=== PATIENT | female | born 1985 | race Caucasian/White ===

== ENCOUNTER 2017-01-04 20:08 | Emergency (ER) | payer OTHER ==
[~2017-01-04] VITALS: Ht 160 cm; Wt 78.5 kg
[2017-01-04 20:11] VITALS: Ht 160 cm; Wt 78.5 kg
[2017-01-04] MEDS ORDERED: FAMO-96 PO (21:06)
[2017-01-04] MEDS ORDERED: PRED20TA PO (21:06)
[2017-01-04] MEDS ORDERED: BEN25 PO (21:06)
--- NOTE | 2017-01-04 21:16 | ERD ---
ER Documentation Chief Complaint Date/Time DATE: 01/04/17 TIME: 21:10 Chief Complaint itchy rash over her belly & thighs today, no SOB HPI 31 year old female comes in with a pruritic rash on her abdomen chest and thighs that started 2 days ago. She states that she has had a similar rash as today in the past from earing "[id number]" but does not recall eating fish or seafood recently. She denies new foods, medication, lotions or creams. She states they got a new cat but she has had cats prior. No shortness of breath. She has tried taking benadryl but it has not made any improvements in her symptoms. ROS All systems reviewed and are negative except as per history of present illness. Medications Home Meds Active Scripts Famotidine* (Pepcid*) 20 Mg Tablet, 20 MG PO BID for 4 Days, TAB Prov:YELENA ALEXANDER PA-C 01/04/17 Diphenhydramine Hcl* (Benadryl*) 25 Mg Cap, 25 MG PO Q6, #30 CAP Prov:YELENA ALEXANDER PA-C 01/04/17 Prednisone* (Prednisone*) 20 Mg Tab, 40 MG PO DAILY for 4 Days, TAB Prov:YELENA ALEXANDER PA-C 01/04/17 Reported Medications [None] No Conflict Check 07/10/10 Allergies Allergies: Coded Allergies: naproxen (Verified Allergy, Unknown, 01/04/17) PMhx/Soc Medical and Surgical Hx: pt denies Medical Hx, pt denies Surgical Hx History of Surgery: Yes () Anesthesia Reaction: No Hx Neurological Disorder: No Hx Respiratory Disorders: No Hx Cardiac Disorders: No Hx Psychiatric Problems: No Hx Miscellaneous Medical Probl: No (no medical hx) Hx Alcohol Use: No Hx Substance Use: No Hx Tobacco Use: No Smoking Status: Current every day smoker Physical Exam Vitals Vital Signs Date Time Temp Pulse Resp B/P Pulse Ox O2 Delivery O2 Flow Rate FiO2 01/04/17 20:11 98.3 89 18 146/65 99 Physical Exam Const: well appearing nontoxic Head: Atraumatic Eyes: Normal Conjunctiva ENT: Normal External Ears, Nose and Mouth. No angiodema Neck: Full range of motion..~ No meningismus. Resp: Clear to auscultation bilaterally Cardio: Regular rate and rhythm, no murmurs Abd: Soft, non tender, non distended. Normal bowel sounds Skin: generalized macular rash on trunk and bilateral upper thighs, rash is blanchable Back: No midline or flank tenderness Ext: No cyanosis, or edema Neur: Awake and alert Psych: Normal Mood and Affect Results 24 hrs Current Medications Medications (Trade) Dose Ordered Sig/Navi Route PRN Reason Start Time Stop Time Status Last Admin Dose Admin Prednisone (Prednisone) 40 mg ONCE ONCE PO 01/04/17 21:30 01/04/17 21:31 Procedures/MDM 31 year old female comes in with a pruritic rash to her trunk since 2 days ago. She does not show any systemic complaints, shortness of breath, signs of meningitis, cellulitis, scabies. Patient is appropriate for outpatient management. Departure Diagnosis: Primary Impression: Rash Condition: Good Patient Instructions: Dermatitis, Non-Specific YELENA ALEXANDER PA-C Jan 04, 2017 21:16
[2017-01-04] MEDS ORDERED: predniSONE 20 MG TAB PO ONE (21:30)
== END 2017-01-04 21:41 | disposition home or self-care (01) ==
LOC: FTE 20:08
DX: R21 Rash and other nonspecific skin eruption (principal); F17.210 Nicotine dependence, cigarettes, uncomplicated
CPT/HCPCS: J7512; Z7502; 99283